=== PATIENT | female | born 1985 | race Caucasian/White ===

== ENCOUNTER 2018-06-04 19:20 | Inpatient (IN) | payer MEDICAID ==
[2018-06-05] MEDS ORDERED: BUTORPHANOL 1 MG INJ IV
[2018-06-05] MEDS ORDERED: METHYLERGONOVINE 0.2 MG INJ IM
[2018-06-05] MEDS ORDERED: CARBOPROST 250 MCG INJ IM
[2018-06-05] MEDS ORDERED: BUTORPHANOL 2 MG INJ IV
[2018-06-05] MEDS ORDERED: IBUPROFEN 600 MG TAB PO
[2018-06-05] MEDS ORDERED: MISOPROSTOL 200 MCG TAB PR
[2018-06-05] MEDS ORDERED: LIDOCAINE 1% (MPF) 30 ML INJ INJ
[2018-06-05] MEDS ORDERED: OXYTOCIN 30 UNITS/LR 500 ML IV ×3
[2018-06-05] MEDS: LACTATED RINGER'S 1,000 ML IV ×4 (01:41→21:38)
[2018-06-05 01:53] LABS: ADD MAN DIFF? NO
[2018-06-05 01:56] LABS: WHITE BLOOD COUNT 9.3 10^3/ul (4.8-10.8)
[2018-06-05 01:56] LABS: BASOPHILS % 0.3 % (0.0-2.0); EOSINOPHILS # 0.1 10^3/ul (0.0-0.5); EOSINOPHILS % 0.6 % (0.0-7.0); HEMATOCRIT 37.7 % (37.0-47.0); HEMOGLOBIN 12.4 g/dl (12.0-16.0); LYMPHOCYTES # 1.9 10^3/ul (0.8-2.9); LYMPHOCYTES % 20.1 % (15.0-51.0); MEAN CORPUSCULAR HEMOGLOBIN 27.5 pg (29.0-33.0); MEAN CORPUSCULAR HGB CONC 32.9 g/dl (32.0-37.0); MEAN CORPUSCULAR VOLUME 83.6 fl (82.0-101.0); MEAN PLATELET VOLUME 11.3 fl (7.4-10.4); MONOCYTE # 0.7 10^3/ul (0.3-0.9); NEUTROPHIL # 6.5 10^3/ul (1.6-7.5); PLATELET COUNT 188 10^3/UL (140-415); RED BLOOD COUNT 4.51 10^6/ul (4.20-5.40); RED CELL DISTRIBUTION WIDTH 15.2 % (11.5-14.5)
[2018-06-05 02:28] LABS: INR 0.91; PARTIAL THROMBOPLASTIN TIME 26.1 Sec (23.0-35.0); PROTIME 12.4 Sec (11.9-14.9)
[2018-06-05 03:13] LABS: HEPATITIS B SURFACE ANTIGEN NEGATIVE (NEGATIVE)
[2018-06-05] MEDS ORDERED: LACTATED RINGER'S 1,000 ML IV (04:00)
[2018-06-05 19:54] LABS: RAPID PLASMA REAGIN NONREACTIVE (NR)
[2018-06-06] MEDS: LACTATED RINGER'S 1,000 ML IV ×2 (05:23→13:48)
[2018-06-06] MEDS ORDERED: ACETAMINOPHEN 325 MG TAB PO (09:00)
== END 2018-06-06 17:48 | disposition home or self-care (01) | DRG 833 ==
LOC: OBT 19:20 → L-D 19:22
PROVIDERS: Obstetrics & Gynecology
DX: O60.03 Preterm labor without delivery, third trimester (principal); Z3A.37 37 weeks gestation of pregnancy
CPT/HCPCS: 76815; 76818; 85025; 85610; 85730; 86592; 86850; 86900; 86901; 87340